=== PATIENT | male | born 1965 | race Caucasian/White ===

== ENCOUNTER → 2017-06-30 | Day surgery (SDC) | payer OTHER ==
[2017-06-29 13:18] VITALS: BMI 40.0
--- NOTE | 2017-06-29 13:54 | PAT Medication Instructions ---
Service Date Jun 29, 2017. Current Home Medication List Aspirin (Aspirin Ec), 81 MG PO QAM Atorvastatin (Lipitor), 80 MG PO QAM Gabapentin (Neurontin), 100 MG PO QAM Insulin Glargine (Lantus), 12-20 UNITS SC QPM Insulin Isophan/Regular (Novolin 70/30), 1 DOSE SC UD Metoprolol Tartrate (Lopressor) (Lopressor), 25 MG PO BID Medication Instructions For Your Scheduled Surgery - Take the following medications the morning of surgery with a sip of water: Aspirin (Aspirin Ec), 81 MG PO QAM (okay to continue per surgeon) Atorvastatin (Lipitor), 80 MG PO QAM Gabapentin (Neurontin), 100 MG PO QAM Metoprolol Tartrate (Lopressor) (Lopressor), 25 MG PO BID - Take the following medications as scheduled the night before surgery: Insulin Glargine (Lantus), 12-20 UNITS SC QPM Insulin Isophan/Regular (Novolin 70/30), 1 DOSE SC UD Metoprolol Tartrate (Lopressor) (Lopressor), 25 MG PO BID - For Insulin Dependent Diabetic patients: Test blood sugar A.M. of surgery. - If Blood sugar greater than 150, take half of your regular dose of: Insulin Isophan/Regular (Novolin 70/30), one half of sliding scale - If Blood sugar less than 150, do not take any: Insulin Isophan/Regular (Novolin 70/30) If you have any questions please call us at [phone] or [phone] or [phone]
--- NOTE | 2017-06-29 14:23 | DIAGNOSTIC IMAGING REPORT ---
CHEST 2 VIEWS ROUTINE CLINICAL HISTORY: Preoperative chest COMPARISON STUDY: No previous studies for comparison. FINDINGS: The cardiac and mediastinal contours are normal. There are postsurgical changes of a midline sternotomy. There is a calcified granuloma within the right upper lobe. A 6 mm opacity within left midlung zone, likely represents a summation. There are no pleural effusions. There is no failure. There is no focal pelvic consolidation.[ IMPRESSION: No active disease in the chest. Electronically signed by: Juan A Moran M.D. 06/29/2017 2:22 PM Dictated Date/Time: 06/29/2017 2:20 PM
[2017-06-29 14:44] LABS: BASO % 0.5 %; BASO ABS # 0.05 K/uL (0-0.2); EOS % 1.4 %; EOS ABS # 0.13 K/uL (0-0.5); HEMATOCRIT 42.5 % (42-52); HEMOGLOBIN 15.4 g/dL (14.0-18.0); IG# 0.05 K/uL (0.00-0.02); LYMPH % 32.6 %; LYMPH ABS # 3.06 K/uL (1.2-3.4); MEAN CELL VOLUME 89.1 fL (80-100); MEAN CORPUSCULAR HEMOGLOBIN 32.3 pg (25-34); MEAN CORPUSCULAR HGB CONC 36.2 g/dl (32-36); MEAN PLATELET VOLUME 10.4 fL (7.4-10.4); MONO % 11.6 %; MONO ABS # 1.09 K/uL (0.11-0.59); NEUT % 53.4 %; PLATELET COUNT 237 K/uL (130-400); RED CELL DISTRIBUTION WIDTH CV 12.9 % (11.5-14.5); RED CELL DISTRIBUTION WIDTH SD 41.7 fL (36.4-46.3); WHITE BLOOD COUNT 9.38 K/uL (4.8-10.8)
[2017-06-29 14:52] LABS: ALBUMIN 3.5 gm/dl (3.4-5.0); CALCIUM 9.3 mg/dl (8.5-10.1); CREATININE 0.8 mg/dl (0.60-1.40); INR 0.9 (0.9-1.1); POTASSIUM 4.3 mmol/L (3.5-5.1); PTT PATIENT 26.6 SECONDS (21.0-31.0)
--- NOTE | 2017-06-29 20:01 | History and Physical ---
History & Physical Date Jun 29, 2017. Chief Complaint right ankle pain History of Present Illness The patient is a 52 year old male with complaints of right ankle pain that started on 06.27.17 after a fall. X-rays done noted a lateral malleolus ankle fx. He was placed in a splint and referred for surgical tx. He will be scheduled for 06.30.17. Past Medical/Surgical History PMH: hypercholesterolemia, CAD with triple bypass surgery in January of 2016, IDDM, COPD, obesity Past surgical hx: triple bypass Social hx: 1 ppd smoker for 46 years, quit in January 2016. Quit alcohol use 18 years ago. Allergies Coded Allergies: Unclassified Drugs (Verified Allergy, Unknown, IV DYE - PT CONCERNED ABOUT HAVING THIS DUE TO DIABETES, 06/29/17) Home Medications Scheduled Aspirin (Aspirin Ec), 81 MG PO QAM Atorvastatin (Lipitor), 80 MG PO QAM Gabapentin (Neurontin), 100 MG PO QAM Insulin Glargine (Lantus), 12-20 UNITS SC QPM Insulin Isophan/Regular (Novolin 70/30), 1 DOSE SC UD Metoprolol Tartrate (Lopressor) (Lopressor), 25 MG PO BID Physical Examination Skin: warm/dry, no rash Eyes: normal inspection ENT: normal ENT inspection Head: normocephalic, atraumatic Neck: supple, no adenopathy, trachea midline Respiratory/Chest: lungs clear, normal breath sounds (Decrease breath sounds throughout.) Cardiovascular: regular rate, rhythm Abdomen / GI: normal bowel sounds, non tender Extremities: + pertinent finding (Right ankle: No ROM or strength testing done. Tender at the lateral ankle. Splint in place. NV intact.) Neurologic/Psych: no motor/sensory deficits, alert, oriented x 3 Diagnosis Right ankle lateral malleolus fx right ankle syndesmotic disruption. Plan of Treatment Recommend an ORIF right lateral malleolus fx and ORIF syndesmosis. All potential risks, benefits, complications, alternatives, and rehab have been discussed and he wishes to proceed. He will be scheduled for 06.30.17.
[~2017-06-30] VITALS: Ht 172.7 cm; Wt 118.5 kg
[~2017-06-30] MED LIST: ASPI81TA28 PO; ATOR-26 PO; ATROPINE SULFATE 0.1 MG/ML 5ML SYR IV PRN; BACITRACIN 50000 UNIT VIAL IR ONE; BUPIVACAINE 0.5 % 5 MG/1 ML PF 10ML VIAL ONE; CEFAZOLIN 2000MG IV PUSH 10 ML IV SCH; DEXAMETHASONE SOD INJ 4 MG/ML VIAL ONE; FENTANYL CITRATE INJ 50 MCG/1 ML 2 ML VIAL IV PRN; FENTANYL CITRATE INJ 50 MCG/1 ML 2 ML VIAL ONE; GABA1CAP PO; GLYCOPYRROLATE INJ 0.2 MG/ML VIAL ONE; INSDGI SC; INSU3INJ3 SQ; INSU70IN2 SC; KETOROLAC TROMETHAMINE 30 MG/ML VIAL IV. PRN; KETOROLAC TROMETHAMINE 30 MG/ML VIAL ONE; LABETALOL HCL IV 5 MG/ML 20ML IV PRN; LACTATED RINGER'S 1000ML 1,000 ML IV SCH; LIDOCAINE HCL 2% 2 ML VIAL (20MG/ML) ONE; METO25TA56 PO; MIDAZOLAM HCL 1 MG/ML 2ML VIAL ONE; NEOSTIGMINE METHYLSULFATE 5 MG/5 ML SYR ONE; ONDANSETRON INJ 2 MG/ML 2 ML VIAL IV PRN; ONDANSETRON INJ 2 MG/ML 2 ML VIAL ONE; OXYC-57 PO; OXYCODONE/ACETAMINOPHEN 5-325 TAB ONE; PHENYLEPHRINE 100MCG/ML 5ML SYR ONE; PROPOFOL IV EMULSION 10 MG/ML 20 ML VIAL IV ONE; ROCURONIUM BROMIDE 10 MG/ML 5 ML VIAL IV ONE
[2017-06-30 06:19] LABS: HEMOGLOBIN A1C 11.4 % (4.5-5.6)
[2017-06-30 12:25] VITALS: BP 126/80; PULSE 77; TEMP 36.4; O2SAT 91; Ht 172.7 cm; Wt 118.5 kg
--- NOTE | 2017-06-30 12:27 | History & Physical Bridge Note ---
H&P Re-Evaluation Bridge Note: I have examined the patient, reviewed the History & Physical and in the interval since the performance of the History & Physical I have noted the following changes of clinical significance: No changes noted
--- NOTE | 2017-06-30 16:50 | [facility] Post Operative Brief Note ---
Immediate Operative Summary Operative Date Jun 30, 2017. Pre-Operative Diagnosis Right ankle lateral malleolus fx right ankle syndesmotic disruption. Post-Operative Diagnosis Right ankle lateral malleolus fx right ankle syndesmotic disruption. Procedure(s) Performed 1. Right Ankle Open Reduction Internal Fixation Displaced Lateral Malleolus Fracture 2. ORIF Syndesmosis with application 4.5mm Screw Surgeon Dr. Drake Dredge Boat Engineer Surgeon(s) Fredy Guerra PA-C Estimated Blood Loss 3 ml Findings Consistent with Post-Op Diagnosis Specimens none per surgeon Drains None Anesthesia Type General Regional Complication(s) none Disposition Disposition: Recovery Room / PACU
--- NOTE | 2017-06-30 17:08 | DIAGNOSTIC IMAGING REPORT ---
R ANKLE 2 VIEWS HISTORY: 52 years-old Male RT ORIF ANKLE status post ORIF of the right ankle COMPARISON: None available TECHNIQUE: 2 spot. Images of the right ankle were obtained utilizing 39.6 seconds fluoroscopy time FINDINGS: Lateral plate and screw fusion of the distal fibula with a single syndesmotic screw in place fixating an apparent oblique fracture of the distal metadiaphysis. Additionally, there are 2 cannulated screws projecting anterior to posteriorly within a oblique fashion within the distal fibula. Alignment is anatomic. Degenerative changes are seen about the tibiotalar joint. IMPRESSION: Status post ORIF of the distal fibula with satisfactory alignment. The above report was generated using voice recognition software. It may contain grammatical, syntax or spelling errors. Electronically signed by: Jaguar Carney M.D. 06/30/2017 5:06 PM Dictated Date/Time: 06/30/2017 5:05 PM
--- NOTE | 2017-06-30 17:23 | Discharge Instructions ---
Discharge Instructions Date of Service Jun 30, 2017. Visit Reason for Visit: Right Ankle Fibula Fracture Discharge Discharge Diagnosis / Problem: Right ankle fibula fracture Discharge Goals Goal(s): Decrease discomfort, Improve function Activity Recommendations Activity Limitations: as noted below Weightbearing Status: Right non-weightbearing Anesthesia . Post Anesthesia Instructions: If you have had General Anesthesia or IV Sedation: * Do not drive today. * Resume driving when surgeon permits. * Do not make important decisions or sign legal documents today. * Call surgeon for: 1. Temperature elevations greater than 101 degrees F. 2. Uncontrollable pain. 3. Excessive bleeding. 4. Persistent nausea and vomiting. 5. Medication intolerance (nausea, vomiting or rash). * For nausea and vomiting use only clear liquids such as: tea, soda, bouillon until nausea subsides, then gradually increase diet as tolerated. * If you have any concerns or questions, call your surgeon's office. If physician is unavailable and it is an emergency, call 911 or go to the nearest emergency room. . Instructions / Follow-Up Instructions / Follow-Up Nonweightbearing right lower extremity with walker/crutches. Maintain splint/ dressing until follow-up with MD. Frequent ice and elevation. Diet Recommendations Recommended Home Diet: resume previous diet Procedures Procedures Performed: 1. Right Ankle Open Reduction Internal Fixation Displaced Lateral Malleolus Fracture 2. ORIF Syndesmosis with application 4.5mm Screw Pending Studies Studies pending at discharge: no Medical Emergencies . Who to Call and When: Medical Emergencies: If at any time you feel your situation is an emergency, please call 911 immediately. . Non-Emergent Contact Non-Emergency issues call your: Surgeon Call Non-Emergent contact if: temperature is above 101.5, your pain is not controlled, wound has increased drainage, wound has increased redness . . "Provider Documentation" section prepared by Fredy Arellano PA-C. . [place] Drug Monitoring Program Search Results: patient reviewed within database, no issues identified
--- NOTE | 2017-06-30 18:14 | Anesthesiology Progress Note ---
Anesthesia Post Op Note Date & Time Jun 30, 2017 at 18:14 Vital Signs Pain Intensity: 4 Vital Signs Past 12 Hours Date Time Temp Pulse Resp B/P (MAP) Pulse Ox O2 Delivery O2 Flow Rate FiO2 06/30/17 18:12 36.4 06/30/17 18:06 164/86 06/30/17 18:03 77 16 93 06/30/17 18:03 88 16 96 06/30/17 18:01 160/91 06/30/17 17:58 78 16 94 06/30/17 17:58 78 16 06/30/17 17:57 77 16 06/30/17 17:57 77 16 94 06/30/17 17:56 158/96 06/30/17 17:52 77 19 97 06/30/17 17:52 82 18 96 06/30/17 17:51 145/81 06/30/17 17:46 135/82 06/30/17 17:42 71 12 06/30/17 17:42 70 12 100 06/30/17 17:41 141/84 06/30/17 17:35 72 14 130/79 100 06/30/17 17:35 70 14 100 06/30/17 17:31 135/67 06/30/17 17:26 133/68 06/30/17 17:25 76 15 06/30/17 17:25 76 15 100 06/30/17 17:20 73 19 06/30/17 17:20 36.3 74 13 146/84 100 Oxymask 10 06/30/17 17:20 73 19 146/84 100 06/30/17 12:25 36.4 77 20 126/80 (95) 91 Room Air Notes Mental Status: alert / awake / arousable, participated in evaluation Pt Amnestic to Procedure: Yes Nausea / Vomiting: adequately controlled Pain: adequately controlled Airway Patency, RR, SpO2: stable & adequate BP & HR: stable & adequate Hydration State: stable & adequate Anesthetic Complications: no major complications apparent
[2017-06-30 18:20] VITALS: BP 133/73; PULSE 88; TEMP 36.5; O2SAT 91
[2017-06-30 18:50] VITALS: BP 122/68; PULSE 78; TEMP 36.6; O2SAT 95
[2017-06-30 19:25] VITALS: BP 144/68; PULSE 81; TEMP 36.2; O2SAT 92
--- NOTE | 2017-06-30 20:00 | OPERATIVE REPORT ---
DATE OF OPERATION: 06/30/2017 PREOPERATIVE DIAGNOSES: 1. Right displaced lateral malleolus fracture Afia type C. 2. Syndesmotic disruption/tear. POSTOPERATIVE DIAGNOSES: Same. PROCEDURE: 1. Open reduction internal fixation, right displaced lateral malleolus fracture. 2. Open reduction internal fixation syndesmosis with application of 4.5 mm screw. SURGEON: Dr. Drake. BABCOCK TESTER: TITLE PROCESSOR: Fredy Arellano PA-C, who was present for patient positioning, sterile prep and drape, management of retractors and instruments. He was present through the critical portions of the case including wound closure, application of sterile dressing and transport of the patient to recovery. ANESTHESIA: General LMA with popliteal block. SPECIMENS: None. DRAINS: None. COMPLICATIONS: None. BLOOD LOSS: 3 mL PERTINENT HISTORY: This is a 52-year-old gentleman who sustained a twisting fall on his right lower extremity. He had been seen in the Emergency Department, radiographs were obtained, placed in a splint and referred for orthopedics. He was seen in clinic and then referred for surgery as indicated. All potential risks, benefits, complications, alternatives, rehab, potential for incomplete relief of symptoms, need for further surgery, DVT, PE, , persistent pain, swelling, scarring, weakness, neurovascular injury, wound complications, hardware failure, nonunion, malunion and loss of function were discussed with the patient. The patient decided to proceed with procedure as indicated. DESCRIPTION OF PROCEDURE: The patient had a popliteal block in the preop holding area and taken to the operative suite and placed supine on the operating room table and I reviewed the consent and identification of proper operative site, the patient was anesthetized, LMA was placed. Tourniquet was placed high on the right thigh over cast padding. A bump was placed under the right hip to correct for external rotation of the lower limb and the right lower extremity was then sterilely prepped and draped in usual fashion, elevated, and exsanguinated with an Esmarch bandage, tourniquet inflated to 325 mmHg. A 15 blade scalpel was used to make an incision over the lateral malleolus. The incision was deepened through subcutaneous tissue. Meticulous hemostasis was achieved with electrocautery. Full thickness skin flaps were developed. The superficial cutaneous nerve was identified, retracted, and protected followed by identification of the peroneal tendon was also retracted and protected. A 15 blade scalpel was used to make an incision along the periosteum of the lateral malleolus. The incision was debrided through the periosteum to the level of the bone. The fracture was clearly identified and local periosteum at the fracture site was then sharply elevated and the rest was maintained. The wound was irrigated copiously with sterile normal saline and the fracture site was then carefully opened with a freer elevator and debrided with a dental pick, followed by irrigation of sterile normal saline until clear. Next, the fracture was reduced and stabilized with 2 bone reduction clamps under live fluoroscopic assistance followed by placement of two 3.5 mm fully threaded solid screws placed anterior to posterior in a lag type fashion across the fracture to stabilize it and compress it into anatomic alignment and position. Next, a 9-hole 1/3 tubular Synthes locking plate was then contoured and then firmly affixed to the lateral malleolus under live fluoroscopic assistance. Next, the foot was held in neutral dorsiflexion and stress views were obtained noting instability at the syndesmosis. This was then followed by ORIF of the syndesmosis with the ankle held in neutral dorsiflexion and a 4.5 mm solid large fragment screw placed from the lateral malleolus across the syndesmosis into the distal tibia and placed under live fluoroscopic assistance. After the screws were tightened by hand and stabilized, final radiographs were obtained in AP and lateral projections noting near anatomic reduction and fixation of the ankle joint followed by irrigation of sterile normal saline until clear and closure of the deep soft tissue with 2-0 Vicryl sutures. The dermis was then closed using buried interrupted 3-0 Vicryl sutures and the skin was then closed using 4-0 nylon. A sterile compressive dressing was applied overwrapped with a bulky Tye Fierro plaster splint and an Cornelio wrap. The foot was held in neutral dorsiflexion, the patient was awakened and the tourniquet was released and the patient was then taken to recovery in stable condition. I attest to the content of the Intraoperative Record and any orders documented therein. Any exception s are noted below.
[2017-06-30 20:20] VITALS: BP 140/68; PULSE 77; TEMP 36.8; O2SAT 93
== END | disposition home or self-care (01) ==
LOC: C.ACU 06-29 12:40
PROVIDERS: ATTEND Orthopaedic Surgery Sports Medicine
DX: S82.61XA Displaced fracture of lateral malleolus of right fibula, initial encounter for closed fracture (principal); S93.431A Sprain of tibiofibular ligament of right ankle, initial encounter; W19.XXXA Unspecified fall, initial encounter; Z95.1 Presence of aortocoronary bypass graft; I10 Essential (primary) hypertension; E11.9 Type 2 diabetes mellitus without complications; E78.00 Pure hypercholesterolemia, unspecified; Z87.891 Personal history of nicotine dependence; Z79.82 Long term (current) use of aspirin; Z79.4 Long term (current) use of insulin; Z90.89 Acquired absence of other organs; E66.01 Morbid (severe) obesity due to excess calories; Z68.41 Body mass index [BMI] 40.0-44.9, adult